=== PATIENT | female | born 1990 | race Hispanic/Latino ===

== ENCOUNTER 2019-12-16 20:32 | Emergency (ER) | payer SELFPAY ==
[2019-12-16 21:00] LABS: Clarity Cloudy (Clear); Leukocyte Unable to Interpret Leu/uL (Negative)
[2019-12-16 21:01] LABS: Nitrite Unable to Interpret (Negative); Protein, Urine (Dipstick) Unable to Interpret mg/dL (Neg-Trace)
[2019-12-16 21:02] LABS: Bilirubin Unable to Interpret (Negative); Glucose, Urine (Dipstick) Unable to Interpret mg/dL (Negative); Urobilinogen UNABLE TO INTERPRET mg/dL (Less than 2)
[2019-12-16 21:03] LABS: Blood, Urine Unable to Interpret (Negative)
[2019-12-16 21:06] LABS: RBC/HPF 21-50 HPF (0-3); WBC/HPF Greater than 50 HPF (0-3)
[2019-12-16 21:07] LABS: Bacteria/HPF 2+ HPF (None Seen)
[2019-12-16 21:34] LABS: Pregnancy Test - Urine (BHCG) Negative (Negative); Pregu Control Background? CLEAR/WHITE (CLR/WHITE); Pregu Control Bar Appear? YES (CONTROL BAR); Specific Gravity 1.028 (1.002-1.036)
== END 2019-12-16 21:49 | disposition home or self-care (01) ==
LOC: ERS 20:32
DX: N39.0 Urinary tract infection, site not specified (principal)
CPT/HCPCS: 81003; 81015; 81025; 99283

== ENCOUNTER 2020-05-29 21:09 | Emergency (ER) | payer SELFPAY ==
[2020-05-29 21:52] LABS: Bilirubin Negative (Negative); Blood, Urine Negative (Negative); Clarity Turbid (Clear); Glucose, Urine (Dipstick) Normal (Negative); Ketone, Urine Negative (Negative); Leukocyte 500 Leu/uL (Negative); Nitrite Negative (Negative); Protein, Urine (Dipstick) 30 mg/dL (Neg-Trace); Renal Epithelial 0-3 HPF (None Seen); Specific Gravity, Urine 1.036 (1.002-1.036); WBC/HPF Greater than 50 HPF (0-3)
[2020-05-29 21:53] LABS: Pregnancy Test - Urine (BHCG) Negative (Negative); Pregu Control Background? CLEAR/WHITE (CLR/WHITE); Pregu Control Bar Appear? YES (CONTROL BAR); Specific Gravity 1.036 (1.002-1.036)
[2020-05-29 22:01] LABS: Bacteria/HPF 1+ HPF (None Seen)
== END 2020-05-29 22:15 | disposition home or self-care (01) ==
LOC: ERS 21:09
DX: N10 Acute pyelonephritis (principal)
CPT/HCPCS: 81003; 81015; 81025; 99283